=== PATIENT | female | born 1980 | race Two or more races ===

== ENCOUNTER 2020-03-23 00:31 | Emergency (ER) | payer MEDICAID ==
[~2020-03-23] VITALS: Ht 167.6 cm; Wt 72.6 kg
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
[2020-03-23] MEDS ORDERED: HYDROCODONE/APAP 5/325MG 1 EACH TABLET ONE (00:43)
[2020-03-23] MEDS ORDERED: IBUPROFEN 600 MG TABLET PO ONE ×2 (00:44→01:00)
--- NOTE | 2020-03-23 00:50 | NUR ---
PT TAKEN TO RADIOLOGY FOR XRAY
[2020-03-23] MEDS ORDERED: HYDROCODONE/APAP 5/325MG 1 EACH TABLET PO ONE (01:00)
--- NOTE | 2020-03-23 01:01 | NUR ---
pt returned from radiology
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
--- NOTE | 2020-03-23 01:51 | NUR ---
PT AMBULATED WITH STEADY GAIT. DENIES PAIN.
[2020-03-23 02:01] VITALS: BP 131/87
--- NOTE | 2020-03-23 02:01 | NUR ---
Patient discharged to home in stable condition. Written and verbal after care instructions given. Patient verbalizes understanding of instruction.pt. ambulatory with a steady gait
== END 2020-03-23 02:02 | disposition home or self-care (01) ==
LOC: ER 00:31
DX: M54.5 Low back pain (principal); V49.49XA Driver injured in collision with other motor vehicles in traffic accident, initial encounter; Y93.89 Activity, other specified; Y92.413 State road as the place of occurrence of the external cause; Y99.8 Other external cause status
CPT/HCPCS: 72110-TC